=== PATIENT | female | born 1975 | race Hispanic/Latino ===

== ENCOUNTER → 2023-09-25 | Outpatient (CLI) | payer MEDICAID, OTHER ==
[~2023-09-25] VITALS: Ht 154.9 cm; Wt 58.4 kg
[~2023-09-25] MED LIST: IRON1CAP30 PO; KRIL500C PO; LIOT5TAB11 PO; VITAMIN D PO
[2023-09-25 13:33] VITALS: BP 133/58; PULSE 69; RESP 13
[2023-09-25 14:31] LABS: BASOPHILS # (AUTO) 0.07 K/uL (0.00-0.20); BASOPHILS % (AUTO) 1.1 % (0.0-5.0); EOSINOPHILS # (AUTO) 0.12 K/uL (0.00-0.70); EOSINOPHILS % (AUTO) 1.9 % (0.0-8.0); HEMATOCRIT 30.8 % (36-48); IMMATURE GRANULOCYTE ABSOLUTE 0.01 K/uL (0-1); LYMPHOCYTES # (AUTO) 2.4 K/uL (1.0-4.8); LYMPHOCYTES % (AUTO) 37.3 % (21.0-51.0); MEAN CORPUSCULAR HEMOGLOBIN 19.9 pg (27.0-33.0); MEAN CORPUSCULAR HGB CONC 28.2 g/dL (32.0-36.0); MEAN CORPUSCULAR VOLUME 70.5 fL (79-99); MONOCYTES # (AUTO) 0.8 K/uL (0.1-1.0); MONOCYTES % (AUTO) 13.1 % (3.0-13.0); NEUTROPHILS % (AUTO) 46.4 % (40.0-77.0); PLATELET COUNT (AUTO) 383 K/uL (130-400); RED BLOOD CELL COUNT(AUTO) 4.37 MIL/uL (4.00-5.50); WHITE BLOOD COUNT (AUTO) 6.4 K/uL (4.8-10.8)
== END | disposition home or self-care (01) ==
LOC: DAH 10:00 → EDSTATUS 19:00
PROVIDERS: ATTEND Obstetrics & Gynecology
DX: Z01.812 Encounter for preprocedural laboratory examination (principal); N92.1 Excessive and frequent menstruation with irregular cycle; R93.89 Abnormal findings on diagnostic imaging of other specified body structures
CPT/HCPCS: 84703; 85025; 86850; 86900; 86901; 36415; A6260